=== PATIENT | male | born 1990 | race Caucasian/White ===

== ENCOUNTER 2019-05-15 00:15 | Emergency (ER) | payer SELFPAY ==
[2019-05-15] MEDS ORDERED: TETRACAINE HCL 0.5% 4ML OPTH ONE (00:45)
[2019-05-15] MEDS ORDERED: FLUORESCEIN SODIUM 1 MG/WRAP ONE (00:45)
[2019-05-15] MEDS ORDERED: KETOROLAC 30 MG/ML INJ ONE (01:02)
[2019-05-15] MEDS ORDERED: HYDROCODONE/APAP 7.5/325 MG TAB ONE (01:30)
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
--- NOTE | 2019-05-15 02:22 | EDPHYS ---
Physician Documentation [facility] Name: Syd Aaron Age: 29 yrs Sex: Male : 1990 Arrival Date: 05/15/2019 Time: 00:22 Bed 5 Private MD: ED Physician Kun Starr HPI: 05/15 01:10 This 29 yrs old Male presents to ER via Ambulatory with complaints of Eye tw4 Injury, Shoulder Pain. 01:10 The patient is experiencing pain, The patient sustained contusion. Onset: The tw4 symptoms/episode began/occurred just prior to arrival, today. Aggravated by nothing. Alleviated by nothing. Associated signs and symptoms: Pertinent negatives: chills, dizziness, ear ache, fever, headache. Severity of symptoms: At their worst the symptoms were moderate in the emergency department the symptoms are unchanged. The patient has not experienced similar symptoms in the past. Historical: - Allergies: 00:29 No Known Allergies; bb - Home Meds: 00:29 None [Active]; bb - PMHx: 00:29 von Willebrand Disease; Diverticulitis; bb - PSHx: 00:29 Knee surgery; OSTEOMYLETIS; foot surgery; bb - Immunization history:: Adult Immunizations up to date, Last tetanus immunization: < 5 years ago. - Coronavirus screen:: The patient has NOT traveled to [place], [place], or [place] in the past 14 days. Proceed with normal triage process as indicated. - Social history:: Smoking status: Patient denies any tobacco usage or history of. - Ebola Screening: : No symptoms or risks identified at this time. ROS: 01:10 Constitutional: Negative for fever, chills, and weight loss, Neck: Negative for injury, tw4 pain, and swelling, Cardiovascular: Negative for chest pain, palpitations, and edema, Respiratory: Negative for shortness of breath, cough, wheezing, and pleuritic chest pain, Abdomen/GI: Negative for abdominal pain, nausea, vomiting, diarrhea, and constipation, Back: Negative for injury and pain, MS/Extremity: Negative for injury and deformity, Skin: Negative for injury, rash, and discoloration. 01:10 Eyes: Positive for pain, visual disturbance. Exam: 01:10 Constitutional: This is a well developed, well nourished patient who is awake, alert, tw4 and in no acute distress. Head/Face: Normocephalic, atraumatic. 01:10 Eyes: Pupils: equal, round, and reactive to light and accomodation, Extraocular movements: no acute changes, Conjunctiva: subconjunctival hemorrhage(s), seen in the right eye, at 9 o'clock, Corneas: abrasion, that is moderate sized, on the right, at 9 o'clock, a fluorescein strip employed to appreciate the findings. 01:10 Musculoskeletal/extremity: Extremities: noted in the anterior aspect of left shoulder: decreased ROM, pain, ROM: limited active range of motion, limited passive range of motion. 02:29 Eyes: funduscopic exam reveals no acute changes, no appreciated papilledema, no retinal tw4 detachment, no evidence of cotton wool exudatates, no flame hemorrhages. Vital Signs: 00:29 BP 155 / 71; Pulse 115; Resp 16 S; Temp 98.4(O); Pulse Ox 100% on R/A; Weight 113.4 kg bb (R); Height 6 ft. 1 in. (185.42 cm) (R); Pain 10/10; 01:29 Pulse 110; Resp 16 S; Pulse Ox 100% on R/A; Pain 9/10; jd3 02:30 BP 146 / 82; Pulse 105; Resp 17 S; Pulse Ox 100% on R/A; Pain 7/10; jd3 00:29 Body Mass Index 32.98 (113.40 kg, 185.42 cm) bb Visual Acuity: 00:32 Left Eye Visual acuity 20/25, Pupil size 4 mm, ; Right Eye Visual acuity 20/40, Pupil bb size 4 mm, ; Both Eyes Visual acuity 20/25; Without Lenses; MDM: 00:26 Patient medically screened. tw4 02:30 Differential diagnosis: Corneal abrasion of right eye. Acute iritis of right eye. Data tw4 reviewed: vital signs, nurses notes. Data interpreted: Pulse oximetry: Interpretation: normal. Counseling: I had a detailed discussion with the patient and/or guardian regarding: the historical points, exam findings, and any diagnostic results supporting the discharge/admit diagnosis. Special discussion: I discussed with the patient/guardian in detail that at this point there is no indication for admission to the hospital. It is understood, however, that if the symptoms persist or worsen the patient needs to return immediately for re-evaluation. 05/15 00:41 Order name: Shoulder Left (2 View) XRAY tw4 Administered Medications: 00:52 Drug: Tetracaine Drops 0.5 % 1 drops Route: Ophthalmic; Site: right eye; jd3 01:50 Follow up: Response: No adverse reaction jd3 00:52 Drug: Fluorescein Strip 1 strip Route: Ophthalmic; Site: right eye; jd3 01:50 Follow up: Response: No adverse reaction jd3 01:02 Drug: TORadol 60 mg Route: IM; Site: right gluteus; jd3 02:00 Follow up: Response: No adverse reaction jd3 01:29 Drug: [place] (7.5 mg-325 mg) 1 tabs Route: PO; jd3 02:29 Follow up: Response: No adverse reaction; RASS: Alert and Calm (0) jd3 Disposition: 05/15/19 02:19 Discharged to Home. Impression: Injury of conjunctiva and corneal abrasion without foreign body, right eye, Conjunctival hemorrhage, right eye. - Condition is Stable. - Discharge Instructions: Subconjunctival Hemorrhage, Corneal Abrasion, [id number], Shoulder Sprain. - Prescriptions for Gentamicin 0.3 % Ophthalmic Drops - instill 1 drop by OPHTHALMIC route every 4 hours for 7 days; 1 bottle. Ibuprofen 800 mg Oral Tablet - take 1 tablet by ORAL route every 8 hours As needed take with food; 30 tablet. Tylenol- Codeine #3 300-30 mg Oral Tablet - take 2 tablet by ORAL route every 6 hours As needed; 6 tablet. - Medication Reconciliation Form, Thank You Letter, Antibiotic Education, Prescription Opioid Use form. - Follow up: Private Physician; When: Upon discharge from the Emergency Department; Reason: Recheck today's complaints, Continuance of care, Re-evaluation by your physician. Follow up: Heath Espana MD; When: Upon discharge from the Emergency Department; Reason: If symptoms return, Recheck today's complaints, Continuance of care, Re-evaluation by your physician. Follow up: Syd Gay MD; When: Upon discharge from the Emergency Department; Reason: If symptoms return, Recheck today's complaints, Continuance of care, Re-evaluation by your physician. - Problem is new. - Symptoms have improved. Signatures: Dispatcher [employer] EDMS Love David, RN RN Lucas Jean-Baptiste RN RN jd3 Kun Starr MD MD tw4 Corrections: (The following items were deleted from the chart) 02:21 02:19 05/15/2019 02:19 Discharged to Home. Impression: Injury of conjunctiva and tw4 corneal abrasion without foreign body, right eye; Conjunctival hemorrhage, right eye. Condition is Stable. Forms are Medication Reconciliation Form, Thank You Letter, Antibiotic Education, Prescription Opioid Use. Follow up: Private Physician; When: Upon discharge from the Emergency Department; Reason: Recheck today's complaints, Continuance of care, Re-evaluation by your physician. Problem is new. Symptoms have improved. tw4 02:32 02:21 05/15/2019 02:19 Discharged to Home. Impression: Injury of conjunctiva and jd3 corneal abrasion without foreign body, right eye; Conjunctival hemorrhage, right eye. Condition is Stable. Discharge Instructions: Subconjunctival Hemorrhage, Corneal Abrasion, [id number]. Prescriptions for Gentamicin 0.3 % Ophthalmic Drops - instill 1 drop by OPHTHALMIC route every 4 hours for 7 days; 1 bottle. and Forms are Medication Reconciliation Form, Thank You Letter, Antibiotic Education, Prescription Opioid Use. Follow up: Private Physician; When: Upon discharge from the Emergency Department; Reason: Recheck today's complaints, Continuance of care, Re-evaluation by your physician. Follow up: Heath Espana; When: Upon discharge from the Emergency Department; Reason: If symptoms return, Recheck today's complaints, Continuance of care, Re-evaluation by your physician. Follow up: Syd Gay; When: Upon discharge from the Emergency Department; Reason: If symptoms return, Recheck today's complaints, Continuance of care, Re-evaluation by your physician. Problem is new. Symptoms have improved. tw4
[2019-05-15 02:44] VITALS: TEMP 98.4; O2SAT 100
[2019-05-15 02:47] VITALS: BP 146/82
--- NOTE | 2019-05-15 07:46 | RAD REPORT ---
EXAM DESCRIPTION: RAD - Shoulder Left 2 View - 05/15/2019 1:01 am CLINICAL HISTORY: Left shoulder pain FINDINGS: No fracture or dislocation is seen.
== END 2019-05-15 02:32 | disposition home or self-care (01) ==
LOC: ER 00:15
DX: S05.01XA Injury of conjunctiva and corneal abrasion without foreign body, right eye, initial encounter (principal)
CPT/HCPCS: 96372; 99284

== ENCOUNTER 2019-10-03 21:47 | Emergency (ER) | payer SELFPAY ==
[2019-10-03] MEDS ORDERED: LIDOCAINE 1% 20 ML MDV ONE (22:59)
[2019-10-03] MEDS ORDERED: LIDOCAINE 1% MPF 5 ML VIAL ONE (23:10)
--- NOTE | 2019-10-03 23:16 | EDPHYS ---
Physician Documentation [facility] Name: Syd Aaron Age: 29 yrs Sex: Male : 1990 Arrival Date: 10/03/2019 Time: 21:49 Bed 19 Private MD: ED Physician Carlos Blackwood HPI: 10/02 23:12 This 29 yrs old Male presents to ER via Ambulatory with complaints of FOREIGN jr8 OBJECT IN CHEEK. 23:12 Onset: The symptoms/episode began/occurred acutely, today. Associated signs and jr8 symptoms: The patient has no apparent associated signs or symptoms. The patient has experienced a previous episode. The patient has not recently seen a physician. Stated that he pulled back on fishing cata and accidently hooked his cheek on left side with treble hook . Historical: - Allergies: 21:57 No Known Allergies; ll1 - PMHx: 21:57 Von Willebrand disease; Diverticulitis; ll1 - PSHx: 21:57 Knee surgery; OSTEOMYLETIS; foot surgery; ll1 - Immunization history:: Flu vaccine is not up to date. - Social history:: Patient/guardian denies using alcohol, street drugs, tobacco products, Smoking status: Patient/guardian denies using. ROS: 23:13 Eyes: Negative for injury, pain, redness, and discharge, ENT: Negative for injury, jr8 pain, and discharge, Neck: Negative for injury, pain, and swelling, Cardiovascular: Negative for chest pain, palpitations, and edema, Respiratory: Negative for shortness of breath, cough, wheezing, and pleuritic chest pain, Abdomen/GI: Negative for abdominal pain, nausea, vomiting, diarrhea, and constipation, Back: Negative for injury and pain, MS/Extremity: Negative for injury and deformity, Neuro: Negative for headache, weakness, numbness, tingling, and seizure. 23:13 Skin: Positive for puncture, Foreign body left cheek. Exam: 23:13 Eyes: Pupils equal round and reactive to light, extra-ocular motions intact. Lids and jr8 lashes normal. Conjunctiva and sclera are non-icteric and not injected. Cornea within normal limits. Periorbital areas with no swelling, redness, or edema. Cardiovascular: Regular rate and rhythm with a normal S1 and S2. No gallops, murmurs, or rubs. Normal PMI, no JVD. No pulse deficits. Respiratory: Lungs have equal breath sounds bilaterally, clear to auscultation and percussion. No rales, rhonchi or wheezes noted. No increased work of breathing, no retractions or nasal flaring. MS/ Extremity: Pulses equal, no cyanosis. Neurovascular intact. Full, normal range of motion. Neuro: Awake and alert, GCS 15, oriented to person, place, time, and situation. Cranial nerves II-XII grossly intact. Motor strength 5/5 in all extremities. Sensory grossly intact. Cerebellar exam normal. Normal gait. 23:13 Skin: injury, puncture(s), that are deep, of the face, Patient has single treble hook impeded into skin of left cheek. No other trauma noted . Vital Signs: 21:56 BP 149 / 105; Pulse 84; Resp 18; Temp 98.3; Pulse Ox 100% ; Pain 4/10; ll1 23:00 BP 138 / 98; Pulse 82; Resp 18; Pulse Ox 99% on R/A; wh Procedures: 23:13 Foreign Body Removal: a fishhook, from the left face, by using a hemostat, lidocaine jr8 lavage, needle, The patient tolerated the removal well. MDM: 22:13 Patient medically screened. jr8 23:13 Data reviewed: vital signs, nurses notes, and as a result, I will discharge patient. jr8 Data interpreted: Pulse oximetry: on room air is 100 %. Interpretation: normal. Counseling: I had a detailed discussion with the patient and/or guardian regarding: the historical points, exam findings, and any diagnostic results supporting the discharge/admit diagnosis, the need for outpatient follow up, a family practitioner, to return to the emergency department if symptoms worsen or persist or if there are any questions or concerns that arise at home. 10/02 23:05 Order name: Dressing - Wound; Complete Time: 23:05 10/02 23:05 Order name: Gloves, Sterile; Complete Time: 23:05 10/02 23:05 Order name: Setup Suture Tray; Complete Time: 23:05 Administered Medications: 23:04 Drug: Lidocaine (1 %) 5 mg {Note: Administered by Provider Gilda.} Route: Infiltration; Disposition: 10/03 01:19 Co-signature as Attending Physician, Carlos Blackwood MD. [email or web address] Disposition: 10/03/19 23:15 Discharged to Home. Impression: Puncture wound without foreign body of left cheek and temporomandibular area. - Condition is Stable. - Discharge Instructions: Foreign Body. - Prescriptions for Keflex 500 mg Oral Capsule - take 1 capsule by ORAL route every 8 hours for 5 days; 15 capsule. - Medication Reconciliation Form, Thank You Letter, Antibiotic Education, Prescription Opioid Use form. - Follow up: Private Physician; When: As needed; Reason: Wound Recheck, Recheck today's complaints, Continuance of care, Re-evaluation by your physician. - Problem is new. - Symptoms have improved. Signatures: Zackary Vo PA PA jr8 Kristin Lieberman Lynsay, RN RN 1 Carlos Blackwood MD MD [email or web address] Corrections: (The following items were deleted from the chart) 10/02 23:29 23:15 10/03/2019 23:15 Discharged to Home. Impression: Puncture wound without foreign wh body of left cheek and temporomandibular area. Condition is Stable. Forms are Medication Reconciliation Form, Thank You Letter, Antibiotic Education, Prescription Opioid Use. Follow up: Private Physician; When: As needed; Reason: Wound Recheck, Recheck today's complaints, Continuance of care, Re-evaluation by your physician. Problem is new. Symptoms have improved. jr8
--- NOTE | 2019-10-03 23:16 | ER ---
Nurse's Notes [facility] Name: Syd Aaron Age: 29 yrs Sex: Male : 1990 Arrival Date: 10/03/2019 Time: 21:49 Bed 19 Private MD: Diagnosis: Puncture wound without foreign body of left cheek and temporomandibular area Presentation: 10/02 21:56 Chief complaint: Patient states: Fish hook lure stuck in left cheek 1.5 hours [employer]. ll1 Coronavirus screen: Proceed with normal triage. Patient denies a cough. Patient denies shortness of breath or difficulty breathing. Patient denies measured and/or subjective temperature greater than 100.4F prior to today's visit. Patient denies travel on a cruise ship or to a country the [facility] currently lists as an affected area. Patient denies contact with known and/or suspected case of COVID-19. Ebola Screen: Patient denies travel to an Ebola-affected area in the 21 days before illness onset. Initial Sepsis Screen: Does the patient meet any 2 criteria? No. Patient's initial sepsis screen is negative. Risk Assessment: Do you want to hurt yourself or someone else? Patient reports no desire to harm self or others. Onset of symptoms was October 03, 2019. 21:56 Method Of Arrival: Ambulatory ll1 21:56 Acuity: GARY 4 ll1 22:15 Initial Sepsis Screen: Does the patient have a suspected source of infection? No. wh Patient's initial sepsis screen is negative. Historical: - Allergies: 21:57 No Known Allergies; ll1 - PMHx: 21:57 Von Willebrand disease; Diverticulitis; ll1 - PSHx: 21:57 Knee surgery; OSTEOMYLETIS; foot surgery; ll1 - Immunization history:: Flu vaccine is not up to date. - Social history:: Patient/guardian denies using alcohol, street drugs, tobacco products, Smoking status: Patient/guardian denies using. Screenin:15 Abuse screen: Denies threats or abuse. Nutritional screening: No deficits noted. wh Tuberculosis screening: No symptoms or risk factors identified. Fall Risk None identified. Assessment: 22:10 General: Appears. General: Appears in no apparent distress. Behavior is calm, wh cooperative, appropriate for age. Pain: Denies pain. Pain: Denies pain. Neuro: Level of Consciousness is awake, alert, obeys commands, Oriented to person, place, time, situation, Appropriate for age. Cardiovascular: Capillary refill < 3 seconds. Respiratory: Airway is patent Respiratory effort is even, unlabored, Respiratory pattern is regular, symmetrical. GI: Abdomen is flat, non-distended. : No signs and/or symptoms were reported regarding the genitourinary system. EENT: No signs and/or symptoms were reported regarding the EENT system. Derm: Skin is intact, is healthy with good turgor, Skin is pink, warm \T\ dry. normal. Musculoskeletal: Circulation, motion, and sensation intact. Injury Description: Foreign body is located left cheek is Fish Hook. Vital Signs: 21:56 BP 149 / 105; Pulse 84; Resp 18; Temp 98.3; Pulse Ox 100% ; Pain 4/10; ll1 23:00 BP 138 / 98; Pulse 82; Resp 18; Pulse Ox 99% on R/A; ED Course: 21:49 Patient arrived in ED. ag3 21:57 Triage completed. ll1 21:57 Arm band placed on Patient placed in an exam room, on a stretcher. 1 22:13 Zackary Vo PA is PHCP. jr8 22:13 Carlos Blackwood MD is Attending Physician. jr8 22:15 Patient has correct armband on for positive identification. Bed in low position. Call light in reach. Side rails up X 1. Pulse ox on. NIBP on. 22:25 Kristin Lieberman is Primary Nurse. 23:12 Assist provider with foreign body removal of a fish hook from left cheek using hemostats, Set up for procedure. Performed by Zackary HERNANDEZ Dressed with gauze bandage, Patient tolerated well. Patient did not have IV access during this emergency room visit. Administered Medications: 23:04 Drug: Lidocaine (1 %) 5 mg {Note: Administered by Provider Gilda.} Route: Infiltration; Outcome: 23:15 Discharge ordered by . jr8 23:26 Discharged to home ambulatory. 23:26 Condition: stable 23:26 Discharge instructions given to patient, Instructed on discharge instructions, follow up and referral plans. medication usage, wound care, Demonstrated understanding of instructions, follow-up care, medications, wound care, Prescriptions given X 1. 23:29 Patient left the ED. Signatures: Zackary Vo PA PA jr8 Kristin Lieberman Alice ag3 Gerald Garcia RN RN ll1
[2019-10-03 23:34] VITALS: TEMP 98.3
[2019-10-03 23:35] VITALS: BP 138/98; O2SAT 99
== END 2019-10-03 23:29 | disposition home or self-care (01) ==
LOC: ER 21:47
DX: S01.442A Puncture wound with foreign body of left cheek and temporomandibular area, initial encounter (principal)
CPT/HCPCS: 99284

== ENCOUNTER 2022-09-23 12:26 | Emergency (ER) | payer SELFPAY ==
[2022-09-23 13:39] LABS: Absolute Lymphocytes (CBC) 2.1 K/uL (0.7-4.9); Lymphocytes % 30.9 % (15.3-44.8); MCV 83.3 fL (80-100); MPV 7.5 fL (7.6-11.3); RBC Red Blood Cell Count 4.55 M/uL (4.33-5.43)
[2022-09-23] MEDS ORDERED: METOCLOPRAMIDE 10 MG/2mL INJ ONE (13:44)
[2022-09-23] MEDS ORDERED: MORPHINE 4 MG/ML SYR ONE ×2 (13:44→15:09)
[2022-09-23] MEDS ORDERED: DIPHENHYDRAMINE 50 MG/ML VIAL ONE (13:44)
[2022-09-23] MEDS ORDERED: NA CHLORIDE 0.9% 1,000 ML ONE (13:44)
[2022-09-23] MEDS ORDERED: NA CHLORIDE 0.9% 50 ML ONE (13:45)
[2022-09-23 13:54] LABS: Albumin 3.3 g/dL (3.4-5.0); Bilirubin Total 0.7 mg/dL (0.2-1.0); Potassium 3.4 mEq/L (3.5-5.1); Protein, Total 7.3 g/dL (6.4-8.2)
--- NOTE | 2022-09-23 15:21 | RAD REPORT ---
EXAM DESCRIPTION: CT - Abdomen Pelvis W Contrast - 09/23/2022 2:14 pm CLINICAL HISTORY: ABD PAIN COMPARISON: Abdomen Pelvis W Contrast dated 12/21/2016; Abdomen Pelvis W Contrast dated 04/21/2016 ; Abdomen Pelvis W Contrast dated 07/03/2015; CT ABD PELVIS W CONTRAST dated 02/15/2015 TECHNIQUE: Thin cut axial CT imaging of the abdomen and pelvis was performed following intravenous a dministration of 100 mL Isovue 300. Multiplanar reformats were generated and reviewed. All CT scans are performed using dose optimization technique as appropriate and may include automated exposure control or mA/KV adjustment according to patient size. FINDINGS: No suspicious findings in the lung bases. The liver, spleen, and pancreas show no suspicious findings. Gallbladder and biliary tree are also wi thout suspicious finding. Symmetric renal function is seen with no hydronephrosis or suspicious renal mass. No dilated bowel loops. Colonic wall thickening, most pronounced along the ascending colon. Nondisten tion of some colonic segments limits evaluation. Wall thickening also noted along the terminal ileum. Mildly prominent lymph nodes along the right mesenteric vessels. No free air, free fluid or inflamma tory stranding. 1 no appreciable fluid collections or evidence of fistula formation. No hernia, mass or bulky lymphadenopathy. The urinary bladder is without significant finding. No suspicious bony findings. Mild superior endplate compression deformity at L1, could relate to Schm orl's node formation. IMPRESSION: Long segment wall thickening most notably involving the ascending colon and terminal ile um. Findings raise concern for infectious or inflammatory enterocolitis.
--- NOTE | 2022-09-23 15:39 | ER ---
Nurse's Notes [facility] Name: Syd Aaron Age: 32 yrs Sex: Male : 1990 Arrival Date: 09/23/2022 Time: 12:26 Bed 13 Private MD: Diagnosis: colitis Presentation: 09/23 12:44 Chief complaint: Patient states: RLQ pain, diarrhea and chills since Wednesday, LL back ph pain that started today. Coronavirus screen: Vaccine status: Patient reports receiving the 2nd dose of the covid vaccine. Ebola Screen: No symptoms or risks identified at this time. Initial Sepsis Screen: Does the patient meet any 2 criteria? No. Patient's initial sepsis screen is negative. Does the patient have a suspected source of infection? No. Patient's initial sepsis screen is negative. Risk Assessment: Do you want to hurt yourself or someone else? Patient reports no desire to harm self or others. Onset of symptoms was September 23, 2022. 12:44 Method Of Arrival: Ambulatory ph 12:44 Acuity: GARY 3 ph Historical: - Allergies: 12:44 No Known Drug Allergies; ph - PMHx: 12:44 Diverticulitis; Von Willebrand disease; ph - Immunization history:: Adult Immunizations unknown. - Social history:: Smoking status: Patient denies any tobacco usage or history of. - Family history:: not pertinent. Screenin:51 [facility] ED Fall Risk Assessment (Adult) History of falling in the last 3 months, db including since admission No falls in past 3 months (0 pts) Confusion or Disorientation No (0 pts) Intoxicated or Sedated No (0 pts) Impaired Gait No (0 pts) Mobility Assist Device Used No (0 pt) Altered Elimination No (0 pt) Score/Fall Risk Level 0 - 2 = Low Risk Oriented to surroundings, Maintained a safe environment. Abuse screen: Denies threats or abuse. Denies injuries from another. Nutritional screening: No deficits noted. Tuberculosis screening: No symptoms or risk factors identified. Assessment: 13:45 Reassessment: Patient appears in no apparent distress at this time. Patient and/or db family updated on plan of care and expected duration. Pain level reassessed. Patient is alert, oriented x 3, equal unlabored respirations, skin warm/dry/pink. Pain: Complains of pain in back and abdomen. Neuro: Level of Consciousness is awake, alert, obeys commands, Oriented to person, place, time, situation, Speech is normal. 15:00 Reassessment: Patient appears in no apparent distress at this time. Patient and/or db family updated on plan of care and expected duration. Pain level reassessed. Patient is alert, oriented x 3, equal unlabored respirations, skin warm/dry/pink. 16:05 Reassessment: Patient appears in no apparent distress at this time. Patient and/or db family updated on plan of care and expected duration. Pain level reassessed. Patient is alert, oriented x 3, equal unlabored respirations, skin warm/dry/pink. Patient states feeling better. Patient states symptoms have improved. General: Appears in no apparent distress. comfortable, Behavior is calm, cooperative. Respiratory: Airway is patent Respiratory effort is even, unlabored, Respiratory pattern is regular, symmetrical. GI: Abdomen is flat, non-distended, Bowel sounds present X 4 quads. Abd is soft Abdomen is tender to palpation. Vital Signs: 12:44 BP 112 / 96; Pulse 96; Resp 18; Temp 97.2; Pulse Ox 100% on R/A; Weight 115.67 kg; ph Height 6 ft. 2 in. ; Pain 10/10; 13:32 BP 128 / 80; Pulse 82; Resp 16; Pulse Ox 98% on R/A; db 14:55 BP 97 / 62; Pulse 74; Resp 16; Pulse Ox 100% ; db 15:47 BP 98 / 68; Pulse 66; Resp 18; Pulse Ox 100% on R/A; db 12:44 Body Mass Index 32.74 (115.67 kg, 187.96 cm) ph 12:44 Pain Scale: Adult ph ED Course: 12:29 Patient arrived in ED. mr 12:46 Triage completed. ph 12:46 Morris Cartwright MD is Attending Physician. rt 12:46 Arm band placed on Patient placed in an exam room. ph 13:05 Kyra Gonzalez RN is Primary Nurse. db 13:30 Inserted saline lock: 22 gauge in left antecubital area, using aseptic technique. Blood db collected. 14:16 CT Abd/Pelvis - IV Contrast Only In Process Unspecified. EDMS 15:39 Robson Howell MD is Referral Physician. rt 16:05 Patient has correct armband on for positive identification. Bed in low position. Call db light in reach. Side rails up X 1. Pulse ox on. NIBP on. Warm blanket given. 16:05 No provider procedures requiring assistance completed. IV discontinued, intact, db bleeding controlled, No redness/swelling at site. Administered Medications: 13:38 Drug: NS 0.9% IV 1000 ml Route: IV; Rate: 1 bolus; Site: left antecubital; db 16:04 Follow up: Response: No adverse reaction; IV Status: Completed infusion; IV Intake: db 1000ml 13:38 Drug: morphine IVP or IV 4 mg Route: IVP; Infused Over: 4 mins; Site: left antecubital; db 16:04 Follow up: Response: No adverse reaction db 13:38 Drug: metoCLOPramide IVP 10 mg Route: IVP; Site: left antecubital; db 16:04 Follow up: Response: No adverse reaction db 13:38 Drug: diphenhydrAMINE IVP 25 mg Route: IVP; Site: left antecubital; db 16:04 Follow up: Response: No adverse reaction db 15:01 Drug: morphine IVP or IV 4 mg Route: IVP; Infused Over: 4 mins; Site: left antecubital; db 16:04 Follow up: Response: No adverse reaction db Medication: 16:06 VIS not applicable for this client. db Intake: 16:04 IV: 1000ml; Total: 1000ml. db Outcome: 15:39 Discharge ordered by . rt 16:06 Discharged to home ambulatory. db 16:06 Condition: stable 16:06 Discharge instructions given to patient, family, Instructed on discharge instructions, follow up and referral plans. Prescriptions given X x6 16:06 Patient left the ED. db Signatures: Dispatcher [employer] MARILYNNOR Praveen Abigail ramirez Lucia Trent RN RN ph Kyra Gonzalez, RN RN db Morris Cartwright MD MD rt
--- NOTE | 2022-09-23 15:40 | EDPHYS ---
Physician Documentation [facility] Name: Syd Aaron Age: 32 yrs Sex: Male : 1990 Arrival Date: 09/23/2022 Time: 12:26 Bed 13 Private MD: ED Physician Morris Cartwright HPI: 09/23 13:09 This 32 yrs old Male presents to ER via Ambulatory with complaints of Abdominal Pain, rt Back Pain, Vomiting. 13:09 Patient presents to the ED with 4 days of abdominal pain to the right lower quadrant. rt It was nonradiating. It was initially intermittent, now constant. It is sharp in nature, moderate in severity. It was worse with food or liquids. Patient reports nausea without vomiting. He does report diarrhea with 1 episode of bloody stools, none currently. Denies other acute complaints at this time. Symptoms are moderate severity, no other aggravating elevating factors.. Historical: - Allergies: 12:44 No Known Drug Allergies; ph - PMHx: 12:44 Diverticulitis; Von Willebrand disease; ph - Immunization history:: Adult Immunizations unknown. - Social history:: Smoking status: Patient denies any tobacco usage or history of. - Family history:: not pertinent. ROS: 13:09 Constitutional: Negative for fever, chills, and weight loss, Cardiovascular: Negative rt for chest pain, palpitations, and edema, Respiratory: Negative for shortness of breath, cough, wheezing, and pleuritic chest pain, MS/Extremity: Negative for injury and deformity, Skin: Negative for injury, rash, and discoloration, Neuro: Negative for headache, weakness, numbness, tingling, and seizure, Psych: Negative for depression, anxiety, suicide ideation, homicidal ideation, and hallucinations. 13:09 Abdomen/GI: Positive for abdominal pain, nausea, diarrhea. Exam: 13:09 Constitutional: This is a well developed, well nourished patient who is awake, alert, rt and in no acute distress. Head/Face: Normocephalic, atraumatic. Chest/axilla: Normal chest wall appearance and motion. Nontender with no deformity. No lesions are appreciated. Cardiovascular: Regular rate and rhythm with a normal S1 and S2. No gallops, murmurs, or rubs. Normal PMI, no JVD. No pulse deficits. Respiratory: Lungs have equal breath sounds bilaterally, clear to auscultation and percussion. No rales, rhonchi or wheezes noted. No increased work of breathing, no retractions or nasal flaring. Skin: Warm, dry with normal turgor. Normal color with no rashes, no lesions, and no evidence of cellulitis. MS/ Extremity: Pulses equal, no cyanosis. Neurovascular intact. Full, normal range of motion. Neuro: Awake and alert, GCS 15, oriented to person, place, time, and situation. Cranial nerves II-XII grossly intact. Motor strength 5/5 in all extremities. Sensory grossly intact. Cerebellar exam normal. Normal gait. Psych: Awake, alert, with orientation to person, place and time. Behavior, mood, and affect are within normal limits. 13:09 Abdomen/GI: Tenderness to the right lower quadrant with mild guarding, no rebound, no distention. Vital Signs: 12:44 BP 112 / 96; Pulse 96; Resp 18; Temp 97.2; Pulse Ox 100% on R/A; Weight 115.67 kg; ph Height 6 ft. 2 in. ; Pain 10/10; 13:32 BP 128 / 80; Pulse 82; Resp 16; Pulse Ox 98% on R/A; db 14:55 BP 97 / 62; Pulse 74; Resp 16; Pulse Ox 100% ; db 15:47 BP 98 / 68; Pulse 66; Resp 18; Pulse Ox 100% on R/A; db 12:44 Body Mass Index 32.74 (115.67 kg, 187.96 cm) ph 12:44 Pain Scale: Adult ph MDM: 12:55 Patient medically screened. rt 21:05 Differential diagnosis: Diverticulitis, colitis, appendicitis. Data reviewed: vital rt signs, lab test result(s), EKG, radiologic studies. I considered the following discharge prescriptions or medication management in the emergency department Medications were administered in the Emergency Department. See MAR. Independent interpretation of the following test(s) in the Emergency Department CT Scan: My interpretation is No obstruction seen on interpretation of the CT scan images. Test considered but Not performed: Ultrasound Symptoms not consistent with gallbladder pathology, ultrasound not indicated. Counseling: I had a detailed discussion with the patient and/or guardian regarding: the historical points, exam findings, and any diagnostic results supporting the discharge/admit diagnosis, lab results, radiology results, the need for outpatient follow up, to return to the emergency department if symptoms worsen or persist or if there are any questions or concerns that arise at home. Response to treatment: the patient's symptoms have markedly improved after treatment. ED course: Patient found to have inflammation of the right colon, terminal ileitis. I discussed with patient the possibility this could be either an infectious colitis versus inflammatory bowel disease such as Crohn's disease. We will treat with antibiotics and steroids. Patient states that he has never had an ulcer in the past,, do not believe that he is likely to have a bleeding ulcer from the steroids. I discussed this with the patient. Patient is agreeable to discharge, will follow-up with gastroenterology as an outpatient. Return precautions were discussed with the patient.. 09/23 13:02 Order name: CBC with Diff; Complete Time: 14:00 rt 09/23 13:02 Order name: CMP; Complete Time: 14:00 rt 09/23 13:02 Order name: Lipase; Complete Time: 14:00 rt 09/23 13:02 Order name: CT Abd/Pelvis - IV Contrast Only; Complete Time: 15:23 rt 09/23 13:02 Order name: IV Saline Lock; Complete Time: 13:44 rt 09/23 13:02 Order name: Labs collected and sent; Complete Time: 13:44 rt Administered Medications: 13:38 Drug: NS 0.9% IV 1000 ml Route: IV; Rate: 1 bolus; Site: left antecubital; db 16:04 Follow up: Response: No adverse reaction; IV Status: Completed infusion; IV Intake: db 1000ml 13:38 Drug: morphine IVP or IV 4 mg Route: IVP; Infused Over: 4 mins; Site: left antecubital; db 16:04 Follow up: Response: No adverse reaction db 13:38 Drug: metoCLOPramide IVP 10 mg Route: IVP; Site: left antecubital; db 16:04 Follow up: Response: No adverse reaction db 13:38 Drug: diphenhydrAMINE IVP 25 mg Route: IVP; Site: left antecubital; db 16:04 Follow up: Response: No adverse reaction db 15:01 Drug: morphine IVP or IV 4 mg Route: IVP; Infused Over: 4 mins; Site: left antecubital; db 16:04 Follow up: Response: No adverse reaction db Disposition Summary: 09/23/22 15:39 Discharge Ordered Location: Home rt Problem: new rt Symptoms: have improved rt Condition: Stable rt Diagnosis - colitis rt Followup: rt - With: Robson Howell MD - When: 2 - 3 days - Reason: Discharge Instructions: - Discharge Summary Sheet rt - Colitis rt Forms: - Medication Reconciliation Form rt - Thank You Letter rt - Antibiotic Education rt - Prescription Opioid Use rt Prescriptions: - acetaminophen-codeine 300-30 mg Oral tablet - take 1 tablet by ORAL route every 6 hours; 18 tablet; Refills: 0, Product rt Selection Permitted - ondansetron 4 mg Oral Tablet,disintegrating - take 1 tablet by ORAL route every 6 hours; 18 tablet; Refills: 0, Product rt Selection Permitted - Augmentin 875-125 mg Oral Tablet - take 1 tablet by ORAL route every 12 hours for 10 days; 20 tablet; Refills: 0, rt Product Selection Permitted - Protonix 40 mg Oral Tablet - take 1 tablet by ORAL route once daily; 30 tablet; Refills: 0, Product rt Selection Permitted - Prednisone 20 mg Oral Tablet - take 2 tablets by ORAL route once daily for 5 days; 10 tablet; Refills: 0, rt Product Selection Permitted - dicyclomine 10 mg Oral Capsule - take 1 capsule by ORAL route 3 times per day; 18 capsule; Refills: 0, Product rt Selection Permitted Signatures: Dispatcher [employer] Lucia Robin RN RN Kyra Israel RN RN Morris Diaz MD MD rt
[2022-09-23 16:46] VITALS: TEMP 97.2
[2022-09-23 16:52] VITALS: O2SAT 100
[2022-09-23 16:54] VITALS: BP 98/68
== END 2022-09-23 16:06 | disposition home or self-care (01) ==
LOC: ER 12:26
DX: K52.9 Noninfective gastroenteritis and colitis, unspecified (principal)
CPT/HCPCS: 36415; 74177; 80053; 83690; 85025; J1200; J2765; J7030; Q9967